=== PATIENT | female | born 1995 | race Caucasian/White ===

== ENCOUNTER 2017-12-04 05:30 | Outpatient (CLI) | payer BC, OTHER ==
[~2017-12-04] VITALS: Ht 154.9 cm; Wt 94.8 kg
[2017-12-04] MEDS ORDERED: HYDR200T78 PO (14:29)
[2017-12-04] MEDS ORDERED: FERR160T5 PO (14:29)
[2017-12-04] MEDS ORDERED: TOPI50TA13 PO (14:29)
[2017-12-04] MEDS ORDERED: LEVO100T7 PO (14:29)
[2017-12-04] MEDS ORDERED: CHOL100045 PO (14:29)
[2017-12-04] MEDS ORDERED: CYAN250010 PO (14:29)
== END 2017-12-04 14:40 ==
LOC: PREOP 05:30
PROVIDERS: ATTEND Specialist
DX: Z01.818 Encounter for other preprocedural examination (principal); K01.1 Impacted teeth

== ENCOUNTER 2017-12-12 12:28 | Day surgery (SDC) | payer BC, OTHER ==
[~2017-12-12] VITALS: Ht 154.9 cm; Wt 94.8 kg
[~2017-12-12 12:28] MED LIST: CHOL100045 PO; CYAN250010 PO; FERR160T5 PO; HYDR200T78 PO; LEVO100T7 PO; TOPI50TA13 PO
[2017-12-12] MEDS ORDERED: SEVOFLURANE (ULTANE) 15 ML INHAL SOLN ONE ×2 (13:44→15:03)
[2017-12-12] MEDS ORDERED: ONDANSETRON 4 MG/2 ML (SDV) Z0FRAN ONE (13:44)
[2017-12-12] MEDS ORDERED: DEXAMETHASONE 10 MG/ML (DECADRON) 1 ML VIAL ONE (13:44)
[2017-12-12] MEDS ORDERED: SUCCINYLCHOLINE INJ 100 MG/5 ML SYR ONE (13:44)
[2017-12-12] MEDS ORDERED: ROCURONIUM 10 MG/ML 5 ML SYRINGE IV ONE (13:44)
[2017-12-12] MEDS ORDERED: ROPIVACAINE 5MG/ML 30ML VIAL ONE ×2 (13:45→14:46)
[2017-12-12] MEDS ORDERED: fentaNYL INJECTION 100 MCG/2 ML AMP ONE ×2 (13:45→15:02)
[2017-12-12] MEDS ORDERED: LIDOCAINE/EPI 2% 1:100,00 (XYLOCAINE) 20 ML VIAL ONE ×2 (13:45→14:47)
[2017-12-12] MEDS ORDERED: MIDAZOLAM 2 MG/2 ML (VERSED) VIAL ONE ×2 (13:45)
--- OUTSIDE RECORDS SUMMARY | 2017-12-12 13:52 | XMS REPORT | Continuity of Care Document ---
Author Author [facility] Address Unknown Phone Unavailable Allergies Active Description Code Type Severity Reaction Onset Reported/Identified Relationship to Patient Clinical Status Yes fentanyl [id number] Drug Allergy Unknown low bp 12/04/2017 Yes metformin [id number] Drug Allergy Unknown causes blood williamson 12/04/2017 Medications There is no data. Problems Date Dx Coded Attending Type Code Diagnosis Diagnosed By 07/13/2013 EMI SANTOS APRN 079.99 VIRAL SYNDROME 07/13/2013 EMI SANTOS APRN [id number] PHARYNGITIS ACUTE 12/04/2017 LOWE DDS, MARILIN Ot K01.1 IMPACTED TEETH 12/04/2017 LOWE DDS, MARILIN Ot Z01.818 ENCOUNTER FOR OTHER PREPROCEDURAL EXAMIN 12/04/2017 LOWE DDS, MARILIN Roach K01.1 IMPACTED TEETH 12/04/2017 LOWE DDS, MARILIN Ot Z01.818 ENCOUNTER FOR OTHER PREPROCEDURAL EXAMIN Procedures Code [place] [id number] STREP A (IN-HOUSE) 07/13/2013 [id number] INFLUENZA A & B (IN-HOUSE) 07/13/2013 Results There is no data. Encounters ACCT No. Visit Date/Time Discharge Status Pt. Type Provider Facility Loc./Unit Complaint [id number] 07/13/2013 16:54:00 07/13/2013 23:59:59 CLS Outpatient EMI SANTOS APRN [id number] 12/04/2017 05:30:00 12/04/2017 14:40:00 DIS Outpatient MARILIN WHELAN DDS [facility] PREOP IMPACTED NONFUNCTINING 3RD MOLARS [id number] 12/12/2017 14:00:00 PEN Preadmit MARILIN WHELAN DDS [facility] SDC EXTRACTIONS [id number] 09/11/2017 11:40:00 09/11/2017 23:59:59 CLS Outpatient LILIANE TRAN [facility]
[2017-12-12] MEDS: LACTATED RINGERS 1,000 ML IV PRN ×2 (14:13→14:53)
--- NOTE | 2017-12-12 14:23 | Progress Note-Pre Operative ---
Pre-Operative Progress Note H&P Reviewed The H&P was reviewed, patient examined and no changes noted. Date Seen by Provider: December 12, 2017 Time Seen by Provider: 20:00 Date H&P Reviewed: December 12, 2017 Time H&P Reviewed: 14:00 Pre-Operative Diagnosis: impacted and nonfunctional teeth 1,16,17,32 MARILIN WHELAN DDS December 12, 2017 2:23 pm
[2017-12-12] MEDS ORDERED: NS (IVPB) 50 ML ONE (14:25)
[2017-12-12] MEDS ORDERED: ceFAZolin 1,000 MG (ANCEF) VIAL ONE (14:25)
[2017-12-12] MEDS ORDERED: DEXAMETHASONE 4 MG/ML SDV (DECADRON) IV SCH (14:30)
[2017-12-12] MEDS ORDERED: HYDROmorphone 1 MG/ML (DILAUDID) 1 ML SYRINGE IV PRN (14:30)
[2017-12-12] MEDS ORDERED: HYDROcodone/APAP 7.5MG-325 MG/15 ML (LORTAB) UDC PO PRN (14:30)
[2017-12-12 14:34] VITALS: BP 122/88
[2017-12-12] MEDS ORDERED: NEOSTIGMINE 1 MG/ML 5 ML SYRINGE ONE (15:00)
[2017-12-12] MEDS ORDERED: morphine INJ 10 MG/ML 1ML (SYR OR VIAL) IVP PRN (15:30)
[2017-12-12] MEDS ORDERED: MEPERIDINE (DEMEROL) INJ 50 MG/ML IVP PRN (15:30)
[2017-12-12] MEDS ORDERED: morphine INJ 10 MG/ML 1ML (SYR OR VIAL) ONE (15:41)
[2017-12-12 16:15] VITALS: BP 130/88
[2017-12-12 16:45] VITALS: BP 133/78
[2017-12-12] MEDS ORDERED: VICOPROFEN PO (17:04)
[2017-12-12] MEDS ORDERED: AMOX500C2 PO (17:04)
[2017-12-12] MEDS ORDERED: ONDA4TAB8 SL (17:04)
[2017-12-12 17:15] VITALS: BP 128/71
[2017-12-12] MEDS ORDERED: LIDOCAINE/EPI 2% 1:200,00 (XYLOCAINE) 10 ML VIAL INJ ONE (17:15)
[2017-12-12] MEDS ORDERED: ROPIVACAINE 5MG/ML 30ML VIAL INJ ONE (17:15)
[2017-12-12 17:30] VITALS: BP 128/71
[2017-12-12] MEDS ORDERED: ceFAZolin INJECTION 1,000 MG in NS (IVPB) 50 ML IV SCH (22:00)
--- NOTE | 2017-12-24 21:11 | OPERATIVE REPORT ---
DATE OF SERVICE: 12/12/2017 SERVICE: plastic surgery specialist. SURGEON: Dr. Marilin Whelan. C ENGINEER: . ANESTHESIA: General endotracheal. There were no complications. PREOPERATIVE DIAGNOSIS: Impacted and nonfunctional teeth numbers 1, 16, 17, and 32. POSTOPERATIVE DIAGNOSIS: Impacted and nonfunctional teeth numbers 1, 16, 17, and 32. PROCEDURE: Removal of impacted teeth numbers 1, 16, 17 and 32. BLOOD LOSS: Minimal. FLUIDS: 1500 mL of crystalloid. Instrument, needle and sponge counts were correct x2. HISTORY OF PRESENT ILLNESS AND INDICATION FOR PROCEDURE: The patient is a 22-year-old white female who presents with a rather substantial health history: She has a pituitary adenoma. She also has autoimmune disorders of lupus, Sjogren syndrome and RA as well as had adverse response to fentanyl and previous surgery. After speaking extensively with her family and corresponding with her primary care physician, it was determined that she would best be served by having this procedure performed at [facility] as an outpatient surgical candidate. DESCRIPTION OF PROCEDURE: The patient was taken to the operating room and placed on the operating room table. Appropriate monitors were placed. Anesthesia was induced. The orotracheal intubation without difficulty. Once this was secured, the surgeon left the room, scrubbed, returned, donned sterile gowns and gloves and prepped and draped the patient in the usual standard sterile fashion. After depositing local anesthesia in around tooth #1 and 16 and a maxillary infiltration technique, we also performed a bilateral mandibular blocks with 2% lidocaine with 1:100,000 epinephrine. After this allowed to take effect, I elevated a full thickness mucoperiosteal flap around tooth #16 and the interfering bone was removed and then the tooth was luxated and removed with a 301 elevator and an upper Eaton forceps. After this, we turned our attention to tooth #1. The exact procedure was performed after elevating the flap, we removed an intervening bone and the tooth was luxated and removed without difficulty. Then turned our attention to tooth #17. A full thickness mucoperiosteal flap was elevated. After this, an interfering bone was removed with a handpiece and then tooth #17 was sectioned with handpiece and then removed. There were no retained roots. There was no excessive hemorrhage. The neurovascular bundle was not visualized. We then copiously irrigated with normal saline and closed with a 3-0 chromic gut suture. Then turned our attention to tooth #32 where the exact procedure was performed. elevate a full thickness flap after incised with a 15 blade, removed an interfering bone with a handpiece. The tooth was sectioned and then removed without complication in pieces. The neurovascular bundle was not visualized. There was no excessive hemorrhage and no retained roots. Again, we copiously irrigated with normal saline. The wound was closed with one single 3-0 chromic gut suture. This completed our procedure. We had placed a throat pack prior to starting the procedure. This was removed and the patient was extubated. She was breathing spontaneously. She was transported to the recovery room where she was assessed to have stable vital signs and breathing spontaneously with a pulse ox of 99%. Job ID: [id number] DocumentID: [id number] Dictated Date: 12/24/2017 14:03:30 Administrative Office Manager Date: 12/24/2017 21:10:28 Dictated By: MARILIN WHELAN DDS
== END 2017-12-12 17:30 | disposition home or self-care (01) ==
LOC: SDC 12:28
PROVIDERS: ATTEND Specialist
DX: K01.1 Impacted teeth (principal)
CPT/HCPCS: 36415; 84703; 87081